=== PATIENT | female | born 1975 | race Caucasian/White ===

== ENCOUNTER 2019-01-22 10:02 | Emergency (ER) | payer BC ==
[~2019-01-22] VITALS: Ht 170.2 cm; Wt 80.9 kg
[~2019-01-22 10:02] MED LIST: CARI350T PO; CYCL-1 PO
[2019-01-22] MEDS ORDERED: diphenhydrAMINE 25mg capsule PO ONE (10:20)
[2019-01-22] MEDS ORDERED: methylPREDNISolone sod succ 125mg/2ml vial IM ONE (10:20)
[2019-01-22] MEDS ORDERED: PRED20TA PO (10:20)
[2019-01-22 11:00] VITALS: BP 143/95
== END 2019-01-22 11:01 | disposition home or self-care (01) ==
LOC: ER 10:03
DX: T78.40XA Allergy, unspecified, initial encounter (principal); G43.909 Migraine, unspecified, not intractable, without status migrainosus; R05 Cough; J02.9 Acute pharyngitis, unspecified; G89.29 Other chronic pain; M10.9 Gout, unspecified; F32.9 Major depressive disorder, single episode, unspecified; Z98.51 Tubal ligation status; Z88.0 Allergy status to penicillin; Z88.2 Allergy status to sulfonamides; Z88.5 Allergy status to narcotic agent; Z88.6 Allergy status to analgesic agent; X58.XXXA Exposure to other specified factors, initial encounter
CPT/HCPCS: 96372; 99283; J2930; Q0163

== ENCOUNTER 2019-05-20 01:04 | Emergency (ER) | payer BC ==
[~2019-05-20] VITALS: Ht 170.2 cm; Wt 79.1 kg
[2019-05-20 02:04] LABS: ALANINE AMINOTRANSFERASE 56 U/L (12-78); ALBUMIN 3.4 G/DL (3.4-5.0); ALKALINE PHOSPHATASE 105 IU/L (46-116); ANION GAP 8 (8-16); ASPARTATE AMINO TRANSFERASE 37 U/L (10-37); BILIRUBIN,TOTAL 0.5 MG/DL (0.1-1.0); BLOOD UREA NITROGEN 10 MG/DL (7-18); BUN/CREATININE RATIO 13.3 (6.6-38.0); CALCIUM 8.4 MG/DL (8.5-10.1); CHLORIDE 108 MMOL/L (99-107); CREATININE 0.75 MG/DL (0.40-0.90); GLUCOSE 96 MG/DL (70-104); POTASSIUM 3.4 MMOL/L (3.5-5.1); SODIUM 144 MMOL/L (135-145); TOTAL CARBON DIOXIDE 28.2 MMOL/L (24-32); TOTAL PROTEIN 6.8 G/DL (6.4-8.2); eGFR 84 ML/MIN
[2019-05-20 02:07] LABS: PARTIAL THROMBOPLASTIN TIME 29 SECONDS (22-32)
[2019-05-20] MEDS ORDERED: aspirin 325mg tablet PO ONE (02:15)
[2019-05-20 02:21] VITALS: BP 141/62
[2019-05-20 02:23] LABS: BASOPHILS # (AUTO) 0.1 X10'3 (0-0.2); EOSINOPHILS # (AUTO) 0.3 X10'3 (0-0.9); EOSINOPHILS % (AUTO) 2.8 % (0-6); HEMATOCRIT 39.5 % (35.0-45.0); HEMOGLOBIN 13.7 g/dl (12.0-16.0); LYMPHOCYTES # (AUTO) 2.9 X10'3 (1.1-4.8); LYMPHOCYTES % (AUTO) 23.4 % (21-51); MEAN CORPUSCULAR HEMOGLOBIN 31.1 PG (27.0-31.0); MEAN CORPUSCULAR HGB CONC 34.7 g/dL (33.0-36.5); MEAN CORPUSCULAR VOLUME 89.8 FL (78-98); MONOCYTES # (AUTO) 0.8 X10'3 (0-0.9); MONOCYTES % (AUTO) 6.5 % (2-12); NEUTROPHILS # (AUTO) 8.2 X10'3 (1.8-7.7); NEUTROPHILS % (AUTO) 66.3 % (42-75); PLATELET COUNT 280 X10'3 (140-440); RED CELL DISTRIBUTION WIDTH 13.3 % (11.5-14.5); WHITE BLOOD COUNT 12.3 X10'3 (4.5-11.0)
== END 2019-05-20 02:56 | disposition home or self-care (01) ==
LOC: ER 01:05
DX: R07.89 Other chest pain (principal); I10 Essential (primary) hypertension; G43.909 Migraine, unspecified, not intractable, without status migrainosus; G89.29 Other chronic pain; M54.9 Dorsalgia, unspecified; Z98.51 Tubal ligation status; Z88.6 Allergy status to analgesic agent; Z88.0 Allergy status to penicillin; Z88.2 Allergy status to sulfonamides; Z88.8 Allergy status to other drugs, medicaments and biological substances
CPT/HCPCS: 36415; 71045; 80053; 84484; 85025; 85610; 85730; 93005; 99284

== ENCOUNTER 2022-07-14 22:49 | Emergency (ER) | payer BC ==
[~2022-07-14] VITALS: Ht 167.6 cm; Wt 81.8 kg
[2022-07-14 23:17] VITALS: BP 139/91
[2022-07-15] MEDS ORDERED: traMADol 50MG tablet PO ONE (00:30)
[2022-07-15] MEDS ORDERED: ondansetron 4mg rapidly disintigrating tab PO ONE (00:30)
[2022-07-15] MEDS ORDERED: TRAM1TAB2 PO (00:33)
[2022-07-15] MEDS ORDERED: ONDA4TAB12 PO (00:36)
--- NOTE | 2022-07-15 00:57 | NUR ---
PO MEDS GIVEN
== END 2022-07-15 00:58 | disposition home or self-care (01) ==
LOC: ER 22:49
DX: M54.50 Low back pain, unspecified (principal); G43.909 Migraine, unspecified, not intractable, without status migrainosus; Z88.0 Allergy status to penicillin; Z88.2 Allergy status to sulfonamides; Z88.5 Allergy status to narcotic agent; Z88.6 Allergy status to analgesic agent; Z98.51 Tubal ligation status
CPT/HCPCS: 99283

== ENCOUNTER 2022-08-24 16:42 | Emergency (ER) | payer BC ==
[~2022-08-24] VITALS: Ht 170.2 cm; Wt 82.3 kg
[~2022-08-24 16:42] MED LIST changes: +ONDA4TAB12 PO
[2022-08-24 16:52] VITALS: BP 159/79
[2022-08-24] MEDS ORDERED: dexamethasone sod phosphate 10mg/ml inj IV STA (17:23)
[2022-08-24] MEDS ORDERED: normal saline 1000ML IV soln IVB ONE (17:25)
[2022-08-24] MEDS ORDERED: metoclopramide 5 mg/ml inj IV ONE (17:25)
[2022-08-24] MEDS ORDERED: ketorolac trometh. 30mg/ml inj. IV ONE (17:25)
[2022-08-24] MEDS ORDERED: LORazepam 2 mg/ml vial IV ONE (17:25)
[2022-08-24] MEDS ORDERED: SUMA100T PO (17:30)
== END 2022-08-24 19:28 | disposition home or self-care (01) ==
LOC: ER 16:43
DX: G43.909 Migraine, unspecified, not intractable, without status migrainosus (principal); G89.29 Other chronic pain; M54.50 Low back pain, unspecified; Z88.0 Allergy status to penicillin; Z88.2 Allergy status to sulfonamides; Z88.6 Allergy status to analgesic agent; Z88.5 Allergy status to narcotic agent; Z98.51 Tubal ligation status
CPT/HCPCS: 96374; 96375; 99284; J1100; J1885; J2765; J7030

== ENCOUNTER 2022-12-10 03:59 | Emergency (ER) | payer BC ==
[~2022-12-10] VITALS: Ht 170.2 cm; Wt 85.0 kg
[2022-12-10 04:01] VITALS: BP 131/90
[2022-12-10] MEDS ORDERED: IBUP-1984 PO (04:17)
[2022-12-10] MEDS ORDERED: GABA-530 PO (04:17)
== END 2022-12-10 04:26 | disposition home or self-care (01) ==
LOC: ER 04:00
DX: M54.32 Sciatica, left side (principal); G43.909 Migraine, unspecified, not intractable, without status migrainosus; G89.29 Other chronic pain; M54.9 Dorsalgia, unspecified; F32.A Depression, unspecified; Z88.0 Allergy status to penicillin; Z88.2 Allergy status to sulfonamides; Z88.8 Allergy status to other drugs, medicaments and biological substances; Z88.6 Allergy status to analgesic agent; Z79.899 Other long term (current) drug therapy; Z79.1 Long term (current) use of non-steroidal anti-inflammatories (NSAID); Z79.2 Long term (current) use of antibiotics
CPT/HCPCS: 99283

== ENCOUNTER 2023-03-31 12:10 | Emergency (ER) | payer BC ==
[~2023-03-31] VITALS: Ht 170.2 cm; Wt 82.0 kg
[~2023-03-31 12:10] MED LIST changes: +GABA-530 PO
[2023-03-31 12:11] VITALS: BP 114/88; PULSE 80; TEMP 97.7; O2SAT 97
[2023-03-31] MEDS ORDERED: IBUP-1986 PO (13:39)
[2023-03-31] MEDS ORDERED: LIDO700A32 TOP (13:39)
[2023-03-31] MEDS ORDERED: CYCL-1 PO (13:39)
[2023-03-31] MEDS ORDERED: ketorolac trometh inj. 60 MG/2 ML VIAL IM ONE (13:40)
[2023-03-31 13:44] VITALS: RESP 18
== END 2023-03-31 13:52 | disposition home or self-care (01) ==
LOC: ER 12:10
DX: M54.32 Sciatica, left side (principal); G89.29 Other chronic pain; M54.9 Dorsalgia, unspecified; G43.909 Migraine, unspecified, not intractable, without status migrainosus; F32.A Depression, unspecified; Z88.0 Allergy status to penicillin; Z88.2 Allergy status to sulfonamides; Z79.899 Other long term (current) drug therapy
CPT/HCPCS: 96372; 99283; J1885

== ENCOUNTER 2023-04-02 23:42 | Emergency (ER) | payer BC ==
[~2023-04-02] VITALS: Ht 170.2 cm; Wt 80.6 kg
[~2023-04-02 23:42] MED LIST changes: +IBUP-1986 PO; +LIDO700A32 TOP
[2023-04-02 23:46] VITALS: BP 122/83; PULSE 87; RESP 14; TEMP 98.1; O2SAT 98
== END 2023-04-03 05:26 | disposition left against medical advice (07) ==
LOC: ER 23:42
DX: M25.552 Pain in left hip (principal); Z53.21 Procedure and treatment not carried out due to patient leaving prior to being seen by health care provider
CPT/HCPCS: 99281

== ENCOUNTER 2023-04-05 01:01 | Emergency (ER) | payer BC ==
[~2023-04-05] VITALS: Ht 170.2 cm; Wt 78.2 kg
[2023-04-05 01:06] VITALS: BP 131/89; PULSE 98; TEMP 98; O2SAT 99
[2023-04-05] MEDS ORDERED: GABA-530 PO (01:36)
[2023-04-05] MEDS ORDERED: TRAM50TA2 PO (01:36)
[2023-04-05] MEDS ORDERED: traMADol 50MG tablet PO ONE (01:40)
[2023-04-05] MEDS ORDERED: gabapentin 400mg capsule PO SCH (01:41)
[2023-04-05] MEDS ORDERED: gabapentin 100mg capsule PO ONE (01:42)
[2023-04-05] MEDS ORDERED: gabapentin 100mg capsule PO SCH (01:42)
[2023-04-05 02:04] VITALS: RESP 16
== END 2023-04-05 02:05 | disposition home or self-care (01) ==
LOC: ER 01:02
DX: M54.42 Lumbago with sciatica, left side (principal); G43.909 Migraine, unspecified, not intractable, without status migrainosus; G89.29 Other chronic pain; M10.9 Gout, unspecified; Z98.51 Tubal ligation status; Z72.89 Other problems related to lifestyle; Z88.0 Allergy status to penicillin; Z88.2 Allergy status to sulfonamides; Z88.8 Allergy status to other drugs, medicaments and biological substances; Z79.899 Other long term (current) drug therapy
CPT/HCPCS: 73502; 99283

== ENCOUNTER 2025-03-18 14:06 | Emergency (ER) | payer BC ==
[~2025-03-18] VITALS: Ht 170.2 cm; Wt 84.1 kg
[~2025-03-18 14:06] MED LIST changes: +LIDO-52 TOP; -LIDO700A32 TOP; +ONDA-243 PO; -ONDA4TAB12 PO
[2025-03-18 14:12] VITALS: TEMP 96.5
--- NOTE | 2025-03-18 14:29 | Physician Documentation ---
History of Present Illness ~ Chief Complaint: Post-operative complication Stated Complaint: POST OP COMPLICATIONS Time Seen by MD: 14:21 OK to notify your PCP?: Yes Primary Medical Doctor: Dr. rodríguez Source: patient Mode of Arrival: POV Exam Limitations: no limitations HPI 49-year-old female presents for vaginal bleeding. She had a hysterectomy due to uterine prolapse done at [facility] by Dr. Odell 3 weeks ago with a bladder sling placed and an hour prior to arrival started experiencing spontaneous vaginal bleeding. Denies any trauma to the area or sexual intercourse. She is having some mild dizziness and some abdominal cramping. She has gone through 5 pads within the past hour, and is actively bleeding during triage. He denies any other complication from the surgery. She denies any blood clotting disorders in her family. She has been taking 325 Aspirin nightly since her surgery. Medication Reconciliation Allergies: Coded Allergies: Penicillins (Verified Allergy, Severe, 03/18/25) Sulfa (Sulfonamide Antibiotics) (Verified Allergy, Intermediate, 03/18/25) Scheduled Cyclobenzaprine* (Cyclobenzaprine*), 1 TAB PO HS Gabapentin (Gabapentin), 1 CAP PO Q8H Gabapentin (Gabapentin), 1 CAP PO Q8H Ibuprofen (Ibuprofen), 1 TAB PO Q8H Lidocaine (Lidoderm), 1 PATCH TOP DAILY ONDANSETRON ODT 4mg tablet (Ondansetron Odt), 1 TABLET PO Q6H Scheduled PRN Carisoprodol (Soma), 1 TABLET PO Q8H PRN for muscle spasms Cyclobenzaprine* (Cyclobenzaprine*), 1 TABLET PO Q8H PRN for muscle spasms Past Medical History Past Medical History: Headache, Migraine, Chronic Back Pain, Gout, Depression Past Surgical History: orthopedic surgeries, tubal ligation Alcohol Use: Sober Drug Use: none Lives with: Family Lives In: Home Occupation: employed Review of Systems All Other Systems at this time: Reviewed and Negative Physical Exam Vital Signs: RN Vital Signs have been reviewed: Yes, Temperature: 96.5, Source: Temporal, Heart Rate: 88, Respiratory Rate: 18, BP: 152/89, Pulse Oximetry: 99, Weight: 84.090 Oxygen Flow Rate: 0 Pulse Oximetry Reflects: adequate oxygenation Physical Exam General: Alert, no apparent distress. HEENT: PERRL, EOMI, no injection, moist mucous membranes. Neck: Full range of motion. Respiratory: Lungs clear, no respiratory distress. Chest: No accessory muscle use. Cardiovascular: Regular rate and rhythm, no murmurs. Gastrointestinal: Soft, nontender, nondistended. Bowels sounds present. Extremities: Normal range of motion, no deformity. Neurologic: Oriented x4. Psychiatric: Normal mood and affect. Skin: Normal color, warm and dry. No edema, no ecchymosis. External Genitalia: blood Vagina: blood present /Pelvic Large amount of clots as well as active bleeding during exam. Unable to v isualize vaginal vault fully due to active bleed. Progress Progress Note 16:45- Dr. Sutton spoke with Dr. Ellsworth over at [facility] who is covering for Dr. Odell suggests getting another hemogram 2 hours after the last to check for blood loss. If the blood loss has slowed down due to the administration of the TXA she recommends that the patient be discharged and can be seen in clinic tomorrow morning. In the meantime Dr. Ellsworth will work to fully open a bed to complete the transfer process over to [facility]. 19:54-[facility] accepted transfer ER to ER with Dr. Ellsworth as OBGYN and Dr. Campos as ER Doctor. Results/Orders Reviewed/noted all lab results: Yes Results/Orders Vital Signs 03/18/25 03/18/25 03/18/25 03/18/25 14:12 15:30 15:31 16:10 Temp 96.5 Pulse 88 81 Resp 18 18 16 B/P (MAP) 152/89 119/85 (96) Pulse Ox 99 94 O2 Flow Rate 0 0 03/18/25 18:21 Resp 14 Laboratory Tests Test 03/18/25 14:34 03/18/25 15:55 03/18/25 18:00 03/18/25 20:13 White Blood Count 10.4 11.5 H 12.3 H 13.6 H Red Blood Count 4.43 4.33 4.04 L 3.90 L Hemoglobin 13.5 13.2 12.5 11.4 L Hematocrit 39.8 38.7 36.4 34.8 L Mean Corpuscular Volume 90.0 89.5 90.3 89.2 Mean Corpuscular Hemoglobin 30.5 30.6 30.9 29.3 Mean Corpuscular Hemoglobin Concent 33.9 34.2 34.3 32.9 L Red Cell Distribution Width 14.0 14.3 14.1 14.0 Platelet Count 388 349 373 352 Mean Platelet Volume 7.3 L 7.4 7.4 7.3 L Neutrophils (%) (Auto) 61.2 Lymphocytes (%) (Auto) 24.3 Monocytes (%) (Auto) 4.6 Eosinophils (%) (Auto) 9.2 H Basophils (%) (Auto) 0.7 Neutrophils # (Auto) 6.4 Lymphocytes # (Auto) 2.5 Monocytes # (Auto) 0.5 Eosinophils # (Auto) 1.0 H Basophils # (Auto) 0.1 CBC Comment Sodium Level 140 Potassium Level 4.1 Chloride Level 105 Carbon Dioxide Level 28.5 Anion Gap 7 L Blood Urea Nitrogen 15 Creatinine 0.81 Estimated GFR/1.73 m2 75 BUN/Creatinine Ratio 18.5 Glucose Level 113 H Calcium Level 8.7 Albumin 3.6 Chemistry Comments Hematology Comments EKG/XRAY/CT/US/VASC/MRI CT : Impression Abdominal/pelvis with contrast CT scan as interpreted by me; no free air or intra-abdominal hemorrhage. Medical Decision Making Additional info obtained from: old records, family Findings 49-year-old female with vaginal hemorrhaging and lower abdominal cramping. She reports going through 5 pads in the past hour. She had a hysterectomy [address] [facility]. She has been taking 325 of Aspirin at night since her surgery. He had an anterior/posterior bladder sling placed. She denies having any vaginal bleeding like this prior. She some dizziness and some lower abdominal cramping. I ordered a CBC, BMP, type and screen. Her CBC and BMP are unremarkable. Administered morphine and Zofran for pain relief and she verbalizes much relief. I performed a vaginal exam on patient and I was unable to fully visualize the vaginal vault. Large amount of blood clots in an active bleed present. We discussed the possibility of blood administration and she verbally agrees to accept blood if she requires it. I discussed this case with Dr. Sutton who recommended TXA administration. I have initiated the transfer process for gynecology to [facility]. Awaiting call back. I have ordered every 2 hour hemograms. Her hemograms are decreasing but it is slow rate. Her vaginal bleeding has slowed down some after the administration of TXA although she is still going through multiple briefs per hour. [facility] has accepted the transfer and we are arranging transportation at this time. Patient's vitals have been stable and she is hemodynamically stable as well. There is no indication for blood products at this time. Her CT scan was completed with contrast of abdomen and pelvis although the final results are not available at this time but images will be pushed to [facility] for viewing. Genital Diff Dx:Considerations: Include: Cervicitis, Menstrual bleeding, Trauma Departure Disposition: 04 INTERMEDIATE CARE FACILITY Impression: Primary Impression: Hemorrhage from vaginal vault Condition: Fair Referrals: NO PRIMARY CARE PROVIDER (PCP) Critical Care Note Total Time (mins): 40 Critical Care Note The very real possibility of a deterioration of this patient's condition required the highest level of my preparedness for sudden, emergent intervention. I provided critical care services, which included medication orders, frequent reevaluations of the patient's condition and response to treatment, ordering and reviewing test results, and discussing the case with various consultants. Excludes time spent performing separately billable procedures. The critical care time associated with the care of the patient was. Additional Comment Medical Screen Exam This patient recieved a medical screening examination. After reviewing the individual's medical complaints with presenting symptoms and performing an appropriate physical examination, it was determined that no immediate life- threatening emergency medical condition is present. This individual is also not a women having contractions. Additional Comment [facility] Scribe Signature: . Attestation: Scribed for Yumi Dawn by Yumi Sequeira NP . 03/18/25 19:57 Parts of this note were created using [employer] voice recognition software program. While efforts were made to correct any mistakes made by this voice recognition software program, nonsensical phrases may remain in this note. In addition, there may be errors and syntax, grammar, content and spelling. YUMI DAWN Mar 18, 2025 14:29 SATINDER ELLIOTT MD Mar 19, 2025 07:28
[2025-03-18 14:40] LABS: MEAN PLATELET VOLUME 7.3 FL (7.4-10.4); RED CELL DISTRIBUTION WIDTH 14.0 % (11.5-14.5)
[2025-03-18 14:51] LABS: CREATININE 0.81 MG/DL (0.40-0.90); TOTAL CARBON DIOXIDE 28.5 MMOL/L (24-32); eCRCL 81 ML/MIN; eGFR 75 ML/MIN
[2025-03-18] MEDS: tranexamic acid 100mg/ml inj. IV ONE (15:06)
[2025-03-18 15:30] VITALS: BP 119/85; PULSE 81; O2SAT 94
[2025-03-18] MEDS: ondansetron/PF 4mg/2ml inj IV ONE (16:08)
[2025-03-18] MEDS: morphine 4 MG/ML inj SYRINge IV ONE ×2 (16:10→20:30)
[2025-03-18 16:14] LABS: MEAN PLATELET VOLUME 7.4 FL (7.4-10.4); RED CELL DISTRIBUTION WIDTH 14.3 % (11.5-14.5)
[2025-03-18 18:14] LABS: MEAN PLATELET VOLUME 7.4 FL (7.4-10.4); RED CELL DISTRIBUTION WIDTH 14.1 % (11.5-14.5)
[2025-03-18] MEDS ORDERED: iohexol 300mg/ml 100ml inj. ONE (18:15)
[2025-03-18 18:21] VITALS: RESP 14
--- NOTE | 2025-03-18 19:50 | RADIOLOGY REPORT ---
Exam: CT CT ABDOMEN PELVIS W/ IV CONTRAST History: POST OP BLEEDING Comparison Study: None TECHNIQUE: Multidetector CT of the abdomen pelvis with contrast. Axial, coronal and sagittal multipla brigida reformats were obtained from the axial data set by the technologist. Radiation Dose Information: CT Dose: CTDI volume is 22.32 mGy. Dose-length product is 1238.51 mGy*cm FINDINGS: The lung bases are clear. Partially visualized heart is unremarkable. Mild hepatic steatosis. Otherwise, liver, spleen, gallbladder, pancreas and adrenal glands are unrema rkable. Kidneys, ureters and urinary bladder unremarkable. Heterogeneous appearance of the uterus with foci of air, linear hyperdensities and areas of hypodensi ty. Endometrium appears indistinct. The uterus appears slightly truncated. Mild fat stranding adjacen t to the uterus. Mild gastric wall thickening. Mild wall Thickening of proximal small bowel loops. The remainder of t he small bowel loops unremarkable. Appendix is unremarkable. Moderate to large amount of fecal materi al within the colon. No evidence of intraperitoneal free air . No evidence of aortic aneurysm or dissection. Slightly prominent retroperitoneal lymph nodes measuring up to 0.8 cm which may be reactive. The soft tissues unremarkable. No evidence of acute osseous abnormalities. IMPRESSION: The uterus appears slightly truncated with Heterogeneous appearance including linear hyperdensities, Hypodense areas and Foci of air and associated adjacent fat stranding. Findings may be associated wit h recent surgical procedure. Recommend clinical correlation. Mild wall thickening of the stomach and proximal small bowel loops. Correlate for gastroenteritis.
[2025-03-18 20:20] LABS: MEAN PLATELET VOLUME 7.3 FL (7.4-10.4); RED CELL DISTRIBUTION WIDTH 14.0 % (11.5-14.5)
== END 2025-03-18 20:41 ==
LOC: ER 14:06
DX: N93.9 Abnormal uterine and vaginal bleeding, unspecified (principal); R42 Dizziness and giddiness; R10.9 Unspecified abdominal pain; F32.A Depression, unspecified; Z88.0 Allergy status to penicillin; Z88.2 Allergy status to sulfonamides
CPT/HCPCS: 36415; 74177; 80048; 85025; 85027; 86885; 86900; 86901; 96374; 96375; 96376; 99291; J2270; J2405; J3490; J7120; Q9967